=== PATIENT | male | born 1995 | race African-American/Black ===

== ENCOUNTER 2018-03-28 17:25 | Emergency (ER) | payer OTHER ==
[~2018-03-28] VITALS: Ht 188 cm; Wt 98.9 kg
[2018-03-28 17:39] VITALS: BP 142/78
--- NOTE | 2018-03-28 18:57 | PHYS DOC ---
Past History Past Medical History: No Pertinent History Past Surgical History: No Surgical History Alcohol Use: None Drug Use: None Adult General Chief Complaint Chief Complaint: LACERATION/AVULSION HPI HPI Patient is a 22-year-old otherwise healthy male who presents after a fall while playing basketball today. Patient notes he fell on his elbow and left buttock. Patient notes he is only currently having pain in his left buttock. Patient sustained a 3 cm laceration over the left posterior elbow. The patient is in correction as he was seen and treated by the nurse there. Patient notes he did not hit his head during the fall and denies loss of consciousness, headache, vomiting, altered mental status, or difficulty walking. Reports last tetanus was > 5 years ago. Review of Systems Review of Systems Constitutional: Denies fever or chills [] Eyes: Denies change in visual acuity, redness, or eye pain [] HENT: Denies nasal congestion or sore throat [] Respiratory: Denies cough or shortness of breath [] Cardiovascular: Denies chest pain or palpitations[] GI: Denies abdominal pain, nausea, vomiting, bloody stools or diarrhea [] : Denies dysuria or hematuria [] Musculoskeletal: Denies back pain, notes left buttock pain; reports pain to left elbow Integument: Reports left elbow laceration Neurologic: Denies headache, focal weakness or sensory changes [] Complete systems were reviewed and found to be within normal limits, except as documented in this note. Current Medications Current Medications Current Medications Medications (Trade) Dose Ordered Sig/Merary Start Time Stop Time Status Last Admin Dose Admin Bacitracin (Bacitracin Topical Pkt) 1 pkt DAILY 03/29/18 09:00 UNV Ibuprofen (Motrin) 600 mg 1X ONCE 03/28/18 18:45 03/28/18 18:46 UNV Lidocaine/ Epinephrine (Xylocaine 2%-Epi 1:100,000) 20 ml 1X ONCE 03/28/18 18:45 03/28/18 18:46 UNV Allergies Allergies Allergies Coded Allergies Type Severity Reaction Last Updated Verified No Known Drug Allergies 03/28/18 No Physical Exam Physical Exam Constitutional: Well developed, well nourished, no acute distress, non-toxic appearance. [] HENT: Normocephalic, atraumatic, oropharynx moist, no oral exudates, nose normal. [] Eyes: PERRL, EOMI, conjunctiva normal, no discharge. [] Neck: Normal range of motion, no midline or paraspinal tenderness, supple Cardiovascular: Heart rate regular rhythm, no murmur [] Lungs & Thorax: Bilateral breath sounds clear to auscultation [] Abdomen: Soft, no tenderness Skin: Warm, dry, no erythema, no rash. 3 cm crescent shaped superficial laceration over the left posterior elbow. No evidence of any trauma to left buttock[] Back: No midline cervical/thoracic/lumbar/sacral tenderness, left gluteal 0tenderness, no CVA tenderness. [] Extremities:, ROM intact, no edema; left olecranon process tender to palpation and upon ROM Neurologic: Alert and oriented X 3, normal motor function, normal sensory function, no focal deficits noted. [] Psychologic: Affect normal, judgement normal, mood normal. [] Current Patient Data Vital Signs Vital Signs Date Time Temp Pulse Resp B/P (MAP) Pulse Ox O2 Delivery O2 Flow Rate FiO2 03/28/18 17:39 98.2 74 18 100 Room Air EKG EKG [] Radiology/Procedures Radiology/Procedures PROCEDURE: ELBOW LEFT 3V Three-view left elbow radiographs 03/28/2018 CLINICAL HISTORY: Fall with laceration to the left elbow. AP, lateral and oblique digital radiographs of the left elbow were obtained. No fracture or dislocation of the left elbow is seen. No radiopaque foreign body is noted. There is no radiographic evidence of a joint effusion. IMPRESSION: No fracture or dislocation of the left elbow is seen. Electronically signed by: Venkata Navarrete MD (03/28/2018 8:58 PM) [facility][] Course & Med Decision Making Course & Med Decision Making 22-year-old male presents from [facility] after a fall while playing basketball. Patient notes he sustained a laceration over his left posterior elbow and has pain in his left buttock. Patient has a 2-1/2 cm laceration over the left posterior elbow and no evidence of any trauma to the left buttock. 3 view elbow radiograph does not show evidence of fracture. Laceration repaired with good closure and hemostasis of the wound. Patient received TDAP booster in ED today. Patient stable for discharge with outpatient follow-up with PCP. Discussed findings and plan with patient, who acknowledges understanding and agreement. Patient accompanied and transported by 2 guards from the [facility] present the entire time. [] Dragon Disclaimer Dragon Disclaimer This electronic medical record was generated, in whole or in part, using a voice recognition dictation system. Departure Departure: Impression: Primary Impression: Laceration of elbow Additional Impression: Contusion Disposition: XFER OTHER (Back to correctional facility) Condition: STABLE Patient Instructions: Laceration Care, Adult, [id number] Additional Instructions: Do not soak your wound. You may shower. Clean wound daily with soap and water. Change dressing 2 times daily. Use over the counter antibiotic ointment with each dressing change. Patient will require to maintain OSMANY bandage to left elbow during the day to prevent sutures from breaking. May remove to clean wound, shower, and at nightime. Sutures need to be removed in 7-10 days. Present to your family doctor or local urgent care for removal. You may also present to the ED but it will be an additional visit/charge. After suture removal you may use Vitamin E ointment to soften the wound and prevent scarring. Use over the counter Tylenol or Ibuprofen for pain. Splinting Splinting : Location: Left elbow Pre-Made Type: OSMANY bandage Pre-Proc Neuro Vasc Exam: normal Post-Proc Neuro Vasc Exam: normal, unchanged from pre-exam Laceration/Wound Repair Laceration/Wound Repair : Wound Location: upper extremity (left elbow) Wound's Depth, Shape: superficial Wound Explored: no foreign body removed Irrigated w/ Saline (ccs): 400 Betadine Prep?: Yes Anesthesia: Lidocaine w/ Epi (2%) Volume Anesthetic (ccs): 4 Wound Debrided: moderate Wound Repaired With: sutures Suture Size/Type: 4:0, nylon Number of Sutures: 5 Layer Closure?: No Sterile Dressing Applied?: Yes Splint Applied?: Yes Type of Splint Applied: OSMANY bandage Sling Applied?: No Progress Tolerated procedure well and without difficulty Problem Qualifiers Primary Impression: Laceration of elbow Encounter type: initial encounter Laterality: left Qualified Codes: S51.012A - Laceration without foreign body of left elbow, initial encounter Additional Impression: Contusion Encounter type: initial encounter Contusion area: elbow Laterality: left Qualified Codes: S50.02XA - Contusion of left elbow, initial encounter AQUILINO VALLES DO Mar 28, 2018 18:57
[2018-03-28] MEDS ORDERED: IBUPROFEN 600 MG TABLET. PO ONE (19:00)
[2018-03-28] MEDS ORDERED: LIDOCAINE 2%/EPI 1:100,000 20 ML VIAL. IJ ONE (19:00)
[2018-03-28] MEDS ORDERED: BACITRACIN ZINC TOPICAL OINT PACKET. TP ONE (19:00)
[2018-03-28] MEDS ORDERED: DIPHTH,PERTUSS(ACELL),TET TOX 0.5 ML DISP.SYRIN. VAX IM ONE ×2 (20:17→20:30)
--- NOTE | 2018-03-28 21:02 | RAD ---
Three-view left elbow radiographs 03/28/2018 CLINICAL HISTORY: Fall with laceration to the left elbow. AP, lateral and oblique digital radiographs of the left elbow were obtained. No fracture or dislocation of the left elbow is seen. No radiopaque foreign body is noted. There is no radiographic evidence of a joint effusion. IMPRESSION: No fracture or dislocation of the left elbow is seen. Electronically signed by: Venkata Navarrete MD (03/28/2018 8:58 PM) [facility]
== END 2018-03-28 20:25 | disposition home or self-care (01) ==
LOC: EEVIPCON 17:25 → ER 17:25
DX: S51.012A Laceration without foreign body of left elbow, initial encounter (principal); M54.5 Low back pain; W19.XXXA Unspecified fall, initial encounter; Y93.67 Activity, basketball; Y92.89 Other specified places as the place of occurrence of the external cause; Y99.8 Other external cause status
CPT/HCPCS: 12002; 73080; 90471; 90715; 99284-25